=== PATIENT | male | born 1960 | race Asian ===

== ENCOUNTER 2016-09-29 05:53 | Emergency (ER) | payer OTHER ==
[2016-09-29 07:36] LABS: BASOPHIL % 0.3 % (0-2); PLATELET COUNT 288 x10^3mcL (130-400); RED CELL DISTRIBUTION WIDTH 14.1 % (11.5-14.5)
[2016-09-29 07:49] LABS: CALCIUM 8.1 mg/dL (8.5-10.1); CARBON DIOXIDE 27.5 mmol/L (21-32); CHLORIDE SERUM 104 mmol/L (98-107); GFR1 > 60 mL/min; GLUCOSE SERUM 140 mg/dL (74-106); POTASSIUM SERUM 3.7 mmol/L (3.5-5.1); SODIUM SERUM 140 mmol/L (136-145)
[2016-09-29 08:00] LABS: ALBUMIN 3.2 g/dL (3.4-5.0); ALKALINE PHOSPHATASE 62 U/L (46-116); ALT/SGPT 26 U/L (16-63); AMYLASE 48 U/L (25-115); AST/SGOT 14 U/L (15-37); BILIRUBIN TOTAL 0.29 mg/dL (0.20-1.00); CHOLESTEROL 127 mg/dL (<200); HDL CHOLESTEROL 38 mg/dL (40-60); LIPASE 237 IU/L (73-393); MAGNESIUM 1.6 mg/dL (1.8-2.4); T4(THYROXINE) 7.5 ug/dL (4.7-13.3); TOTAL PROTEIN, SERUM 6.1 g/dL (6.4-8.2)
[2016-09-29 08:02] LABS: microscopic required? NO
[2016-09-29 08:13] LABS: urine erythrocyte NEGATIVE (NEGATIVE)
[2016-09-29 08:27] LABS: AMPHETAMINE QUAL UR POSITIVE (NEG <=1000)
[2016-09-29 10:20] VITALS: BP 137/84
== END 2016-09-29 10:20 | disposition left against medical advice (07) ==
LOC: ED 05:53
PROVIDERS: Emergency Medicine
DX: R53.1 Weakness (principal); I95.9 Hypotension, unspecified; E11.9 Type 2 diabetes mellitus without complications; I10 Essential (primary) hypertension; J45.909 Unspecified asthma, uncomplicated; D64.9 Anemia, unspecified; E46 Unspecified protein-calorie malnutrition; F17.200 Nicotine dependence, unspecified, uncomplicated; Z71.6 Tobacco abuse counseling; Z88.5 Allergy status to narcotic agent; Z88.6 Allergy status to analgesic agent
CPT/HCPCS: 80307; 82962; 83880; G0480; J7030; Q0092